=== PATIENT | male | born 1960 | race Caucasian/White ===

== ENCOUNTER 2018-02-19 20:17 | Emergency (ER) | payer BC ==
[~2018-02-19] VITALS: Ht 177.8 cm; Wt 91.8 kg
[2018-02-19 20:23] VITALS: BP 129/73
[2018-02-19] MEDS ORDERED: IBUPROFEN 200 MG TABLET ONE (21:15)
[2018-02-19] MEDS ORDERED: IBUPROFEN 200 MG TABLET PO ONE (21:30)
== END 2018-02-19 21:38 | disposition home or self-care (01) ==
LOC: ED 20:50
DX: S83.411A Sprain of medial collateral ligament of right knee, initial encounter (principal); E78.00 Pure hypercholesterolemia, unspecified; Z87.891 Personal history of nicotine dependence; X58.XXXA Exposure to other specified factors, initial encounter; Y93.89 Activity, other specified; Y92.89 Other specified places as the place of occurrence of the external cause; Y99.8 Other external cause status
CPT/HCPCS: 29505; 99284